=== PATIENT | male | born 1960 | race Caucasian/White ===

== ENCOUNTER 2017-01-23 13:32 | Emergency (ER) | payer OTHER ==
[~2017-01-23] VITALS: Ht 180.3 cm; Wt 92.5 kg
[2017-01-23 14:06] LABS: HEMATOCRIT 39.6 % (38.0-50.0); MCH 31.2 PG (29.0-34.0); MCHC 35.4 G/DL (30.0-36.0); MCV 88.2 FL (86-99); MEAN PLAT.VOLUME 8.3 uM^3 (9.0-12.4); PLATELET COUNT 232 K/uL (156-360); RBC DIS.WIDTH-CV 11.9 % (11.8-14.6); RED BLOOD COUNT 4.49 M/uL (4.00-5.50); WHITE BLOOD COUNT 4.1 K/uL (4.1-10.2)
[2017-01-23 14:19] LABS: CHLORIDE 101 mEq/L (99-109); POTASSIUM 4.2 mEq/L (3.7-5.4); SODIUM 134 mEq/L (136-147)
[2017-01-23 14:21] LABS: GLUCOSE 206 mg/dL (70-99)
[2017-01-23 14:22] LABS: ANION GAP 10 MEQ/L (2-14)
[2017-01-23 14:25] LABS: GFR ESTIMATE (CALCULATED) > 59 mL/min/
[2017-01-23 14:26] LABS: UREA NITROGEN (BUN) 10 mg/dL (9-23)
[2017-01-23 14:32] LABS: TROP-I INTERPRETATION NEGATIVE; TROPONIN-I < 0.01 ng/mL (0.0-0.30)
[2017-01-23] MEDS ORDERED: CARDIZEM LA120 MG PO (15:59)
[2017-01-23 16:34] VITALS: BP 141/91
== END 2017-01-23 16:53 ==
LOC: EME 13:32
PROVIDERS: Emergency Medicine
DX: I48.91 Unspecified atrial fibrillation (principal); E11.9 Type 2 diabetes mellitus without complications; I10 Essential (primary) hypertension; Z87.891 Personal history of nicotine dependence
CPT/HCPCS: 80048; 84484; 85027; 93005; 99281; 99284